=== PATIENT | male | born 1970 | race Caucasian/White ===

== ENCOUNTER 2016-12-14 15:52 | Inpatient (IN) | payer OTHER ==
[~2016-12-14] VITALS: Ht 175.3 cm; Wt 65.3 kg
[~2016-12-14 15:52] MED LIST: ALBUTEROL17 GM IH; AMBIEN10 M1 PO; AMBIEN10 MG PO; BUSPAR10 MG PO; COMBIVENT RESPIM4 GM IH; DEPAKOTE ER (E500 MG PO; DEPAKOTE500 MG PO; FLEXERIL10 MG PO; FLOVENT 11120 INHALA IH; FLOVENT 22120 INHALA IH; Flovent 220 mcg IH; KLONOPIN1 MG PO; MEDROL DOSEPAK4 MG PO; MOTRIN800 MG PO; NAPROSYN500 MG PO; NEURONTIN400 M1 PO; NEURONTIN600 MG PO; SIMVASTATIN20 MG PO; ULTRAM50 MG PO; VENTOLIN HFA18 GM IH; XANAX0.25 MG PO; ZITHROMAX Z-PA250 MG PO; ZYRTEC10 MG PO; Zocor PO; ZyrTEC PO
[2016-12-14 16:38] LABS: HEMATOCRIT 50.1 % (38.0-50.0); MCH 28.6 PG (29.0-34.0); MCHC 32.1 G/DL (30.0-36.0); MCV 89.1 FL (86-99); MEAN PLAT.VOLUME 9.6 uM^3 (9.0-12.4); PLATELET COUNT 362 K/uL (156-360); RBC DIS.WIDTH-CV 13.5 % (11.8-14.6); RBC DIS.WIDTH-SD 44.3 % (39-53); RED BLOOD COUNT 5.62 M/uL (4.00-5.50); WHITE BLOOD COUNT 9.3 K/uL (4.1-10.2)
[2016-12-14 16:47] LABS: CHLORIDE 102 mEq/L (99-109); POTASSIUM 4.2 mEq/L (3.7-5.4); SODIUM 139 mEq/L (136-147)
[2016-12-14 16:49] LABS: GLUCOSE 85 mg/dL (70-99)
[2016-12-14 16:50] LABS: ANION GAP 10 MEQ/L (2-14)
[2016-12-14 16:52] LABS: SERUM ETHYL ALCOHOL < 10 mg/dL
[2016-12-14 16:53] LABS: GFR ESTIMATE (CALCULATED) > 59 mL/min/
[2016-12-14 16:54] LABS: UREA NITROGEN (BUN) 9 mg/dL (9-23)
[2016-12-14 17:03] LABS: AMPHETAMINE NEGATIVE (500 ng/mL); BARBITURATES NEGATIVE (200 ng/mL); BENZODIAZEPINES NEGATIVE (150 ng/mL); COCAINE NEGATIVE (150 ng/mL); INTERNAL CONTROLS VALID? YES; METHADONE NEGATIVE (200 ng/mL); METHAMPHETAMINE NEGATIVE (500 ng/mL); OPIATES (MORPHINE) NEGATIVE (100 ng/mL); OXYCODONE NEGATIVE (100 ng/mL); PHENCYCLIDINE NEGATIVE (25 ng/mL); PROPOXYPHENE NEGATIVE (300 ng/mL); THC CANNABINOIDS NEGATIVE (50 ng/mL); TRICYCLIC ANTIDEPRESSANTS NEGATIVE (300 ng/mL)
[2016-12-14] MEDS ORDERED: VENTOLIN HFA18 GM IH ×2 (19:18→21:09)
[2016-12-14] MEDS ORDERED: CLONAZEPAM1 MG PO (19:19)
[2016-12-14] MEDS ORDERED: DEPAKOTE ER500 MG PO (19:19)
[2016-12-14] MEDS ORDERED: ULTRAM50 MG PO (19:19)
[2016-12-14] MEDS ORDERED: ZOCOR20 MG PO (19:20)
[2016-12-14] MEDS ORDERED: DULERA 100 MCG/13 GM IH (19:20)
[2016-12-14] MEDS ORDERED: DULERA 200 MCG/13 GM IH (21:05)
[2016-12-14 21:16] VITALS: BP 125/78
[2016-12-14 21:20] VITALS: BP 125/75
[2016-12-15 07:48] VITALS: BP 100/50
[2016-12-15 15:43] VITALS: BP 108/68
[2016-12-16 07:53] VITALS: BP 107/64
[2016-12-16 16:01] VITALS: BP 121/58
[2016-12-17 07:45] VITALS: BP 124/78
[2016-12-17] MEDS ORDERED: ZOCOR20 MG PO (11:55)
[2016-12-17] MEDS ORDERED: FLEXERIL10 MG PO (11:55)
[2016-12-17] MEDS ORDERED: KLONOPIN1 MG PO (11:55)
[2016-12-17] MEDS ORDERED: VENTOLIN HFA18 GM IH (11:55)
[2016-12-17] MEDS ORDERED: DEPAKOTE ER500 MG PO (11:58)
[2016-12-17] MEDS ORDERED: DULERA 200 MCG/13 GM IH (11:58)
[2016-12-17] MEDS ORDERED: NEURONTIN600 MG PO (11:58)
[2016-12-17] MEDS ORDERED: ULTRAM50 MG PO (11:58)
== END 2016-12-17 14:06 | disposition home or self-care (01) | DRG 885 ==
LOC: EME 15:52 → 1WEST 18:44 → EDOF 18:44 → 1WEST 21:05 → ENRESERV 21:05 → 1WEST 12-17 14:06
DX: F31.9 Bipolar disorder, unspecified (principal); R45.851 Suicidal ideations; J44.9 Chronic obstructive pulmonary disease, unspecified; F12.10 Cannabis abuse, uncomplicated; F17.200 Nicotine dependence, unspecified, uncomplicated; Z59.0 Homelessness; Z85.6 Personal history of leukemia; Z91.14 Patient's other noncompliance with medication regimen; Z91.5 Personal history of self-harm; Z91.410 Personal history of adult physical and sexual abuse
CPT/HCPCS: 80048; 80164; 85027; 90839; 94640; 94640 76; 97150 GO; 97165 GO; 99202; 99281; 99285; G0480; Q0177

== ENCOUNTER 2016-12-28 18:03 | Emergency (ER) | payer OTHER ==
[~2016-12-28] VITALS: Ht 175.3 cm; Wt 62.7 kg
[~2016-12-28 18:03] MED LIST changes: +CLONAZEPAM1 MG PO; +DEPAKOTE ER500 MG PO; +DULERA 100 MCG/13 GM IH; +DULERA 200 MCG/13 GM IH; +ZOCOR20 MG PO
[2016-12-28 19:46] LABS: HEMATOCRIT 43.7 % (38.0-50.0); MCH 29.2 PG (29.0-34.0); MCV 88.6 FL (86-99); PLATELET COUNT 302 K/uL (156-360); RBC DIS.WIDTH-CV 13.4 % (11.8-14.6); RBC DIS.WIDTH-SD 43.6 % (39-53); RED BLOOD COUNT 4.93 M/uL (4.00-5.50); WHITE BLOOD COUNT 11.1 K/uL (4.1-10.2)
[2016-12-28 19:54] LABS: CHLORIDE 106 mEq/L (99-109); POTASSIUM 3.7 mEq/L (3.7-5.4); SODIUM 140 mEq/L (136-147)
[2016-12-28 19:56] LABS: GLUCOSE 92 mg/dL (70-99)
[2016-12-28 19:57] LABS: ANION GAP 9 MEQ/L (2-14)
[2016-12-28 19:59] LABS: SERUM ETHYL ALCOHOL < 10 mg/dL
[2016-12-28 20:00] LABS: GFR ESTIMATE (CALCULATED) > 59 mL/min/; UREA NITROGEN (BUN) 6 mg/dL (9-23)
[2016-12-28 20:34] LABS: AMPHETAMINE NEGATIVE (500 ng/mL); BARBITURATES NEGATIVE (200 ng/mL); BENZODIAZEPINES NEGATIVE (150 ng/mL); COCAINE NEGATIVE (150 ng/mL); INTERNAL CONTROLS VALID? YES; METHADONE NEGATIVE (200 ng/mL); METHAMPHETAMINE NEGATIVE (500 ng/mL); OPIATES (MORPHINE) NEGATIVE (100 ng/mL); OXYCODONE NEGATIVE (100 ng/mL); PHENCYCLIDINE NEGATIVE (25 ng/mL); PROPOXYPHENE NEGATIVE (300 ng/mL); THC CANNABINOIDS PRESUMPTIVE POSITIVE (50 ng/mL); TRICYCLIC ANTIDEPRESSANTS NEGATIVE (300 ng/mL)
[2016-12-28 20:35] LABS: ADD MEDTOX COMMENT Y
[2016-12-28] MEDS ORDERED: DEPAKOTE500 MG PO ×2 (20:37→21:02)
[2016-12-28 21:05] VITALS: BP 124/75
[2016-12-28] MEDS ORDERED: DEPAKOTE ER500 MG PO (21:05)
== END 2016-12-28 21:08 | disposition home or self-care (01) ==
LOC: EME → EDBD 18:03 → EME 21:08
PROVIDERS: Emergency Medicine
DX: F32.9 Major depressive disorder, single episode, unspecified (principal); F39 Unspecified mood [affective] disorder; Z59.0 Homelessness; T50.996A Underdosing of other drugs, medicaments and biological substances, initial encounter; Z91.128 Patient's intentional underdosing of medication regimen for other reason; F17.200 Nicotine dependence, unspecified, uncomplicated; Z87.442 Personal history of urinary calculi; Z85.6 Personal history of leukemia; Z88.0 Allergy status to penicillin; Z88.1 Allergy status to other antibiotic agents
CPT/HCPCS: 80048; 84999; 85027; 90839; 99281; 99283; G0480

== ENCOUNTER 2017-01-06 13:52 | Emergency (ER) | payer OTHER ==
[~2017-01-06] VITALS: Ht 162.6 cm; Wt 63.6 kg
[2017-01-06] MEDS ORDERED: FLOMAX0.4 MG PO (15:23)
[2017-01-06] MEDS ORDERED: BICALUTAMIDE50 MG PO (15:23)
[2017-01-06] MEDS ORDERED: COLACE100 MG PO (15:23)
[2017-01-06 16:21] LABS: HEMATOCRIT 43.1 % (38.0-50.0); MCH 29.1 PG (29.0-34.0); MCHC 32.7 G/DL (30.0-36.0); MCV 88.9 FL (86-99); MEAN PLAT.VOLUME 9.8 uM^3 (9.0-12.4); PLATELET COUNT 285 K/uL (156-360); RBC DIS.WIDTH-CV 13.4 % (11.8-14.6); RBC DIS.WIDTH-SD 44.3 % (39-53); RED BLOOD COUNT 4.85 M/uL (4.00-5.50); WHITE BLOOD COUNT 11.6 K/uL (4.1-10.2)
[2017-01-06 16:32] LABS: CHLORIDE 106 mEq/L (99-109); POTASSIUM 3.8 mEq/L (3.7-5.4); SODIUM 140 mEq/L (136-147)
[2017-01-06 16:33] LABS: GLUCOSE 105 mg/dL (70-99)
[2017-01-06 16:35] LABS: ANION GAP 8 MEQ/L (2-14)
[2017-01-06 16:37] LABS: GFR ESTIMATE (CALCULATED) > 59 mL/min/
[2017-01-06 16:38] LABS: UREA NITROGEN (BUN) 8 mg/dL (9-23)
[2017-01-06 16:42] LABS: TROP-I INTERPRETATION NEGATIVE; TROPONIN-I < 0.01 ng/mL (0.0-0.30)
[2017-01-06 17:25] VITALS: BP 112/88
== END 2017-01-06 17:26 | disposition home or self-care (01) ==
LOC: EME 13:52
PROVIDERS: Emergency Medicine
DX: R00.0 Tachycardia, unspecified (principal); Z87.442 Personal history of urinary calculi; Z85.6 Personal history of leukemia; F17.200 Nicotine dependence, unspecified, uncomplicated
CPT/HCPCS: 80048; 84484; 85027; 93005; 99281; 99284

== ENCOUNTER 2017-01-24 16:53 | Emergency (ER) | payer OTHER ==
[~2017-01-24] VITALS: Ht 175.3 cm; Wt 64.4 kg
[~2017-01-24 16:53] MED LIST changes: +BICALUTAMIDE50 MG PO; +COLACE100 MG PO; +FLOMAX0.4 MG PO
[2017-01-24] MEDS ORDERED: PREDNISONE20 MG PO (21:19)
[2017-01-24] MEDS ORDERED: LEVAQUIN500 MG PO (21:19)
[2017-01-24 21:45] VITALS: BP 128/73
== END 2017-01-24 21:48 | disposition home or self-care (01) ==
LOC: EME 16:53
DX: J44.0 Chronic obstructive pulmonary disease with (acute) lower respiratory infection (principal); J18.0 Bronchopneumonia, unspecified organism; F17.200 Nicotine dependence, unspecified, uncomplicated; Z71.6 Tobacco abuse counseling; Z88.0 Allergy status to penicillin
CPT/HCPCS: 71020; 99281; 99284; J7512

== ENCOUNTER 2017-04-15 02:12 | Emergency (ER) | payer OTHER ==
[~2017-04-15] VITALS: Ht 175.3 cm; Wt 63.5 kg
[~2017-04-15 02:12] MED LIST changes: +LEVAQUIN500 MG PO; +PREDNISONE20 MG PO
[2017-04-15 02:34] LABS: HEMATOCRIT 42.1 % (38.0-50.0); MCH 29.6 PG (29.0-34.0); MCHC 32.5 G/DL (30.0-36.0); MCV 90.9 FL (86-99); MEAN PLAT.VOLUME 9.9 uM^3 (9.0-12.4); PLATELET COUNT 251 K/uL (156-360); RBC DIS.WIDTH-CV 14.5 % (11.8-14.6); RBC DIS.WIDTH-SD 48.1 % (39-53); RED BLOOD COUNT 4.63 M/uL (4.00-5.50); WHITE BLOOD COUNT 8.8 K/uL (4.1-10.2)
[2017-04-15 02:49] LABS: CHLORIDE 106 mEq/L (99-109); POTASSIUM 4.2 mEq/L (3.7-5.4); SODIUM 136 mEq/L (136-147)
[2017-04-15 02:51] LABS: GLUCOSE 104 mg/dL (70-99)
[2017-04-15 02:53] LABS: ANION GAP 7 MEQ/L (2-14); TOTAL BILIRUBIN 0.3 mg/dL (0.0-1.0)
[2017-04-15 02:55] LABS: ALKALINE PHOSPHATASE 69 IU/L (3-129); GFR ESTIMATE (CALCULATED) > 59 mL/min/; TROP-I INTERPRETATION NEGATIVE; TROPONIN-I < 0.01 ng/mL (0.0-0.30)
[2017-04-15 02:56] LABS: UREA NITROGEN (BUN) 17 mg/dL (9-23)
[2017-04-15 04:31] VITALS: BP 100/64
== END 2017-04-15 04:32 | disposition home or self-care (01) ==
LOC: EME 02:12
PROVIDERS: Physician Assistant
DX: R07.89 Other chest pain (principal); F41.1 Generalized anxiety disorder; F17.200 Nicotine dependence, unspecified, uncomplicated; F31.9 Bipolar disorder, unspecified; Z88.1 Allergy status to other antibiotic agents; Z88.5 Allergy status to narcotic agent; Z88.0 Allergy status to penicillin; Z87.442 Personal history of urinary calculi
CPT/HCPCS: 71010; 80053; 84484; 85027; 93005; 99281; 99284

== ENCOUNTER 2017-05-09 23:56 | Emergency (ER) | payer OTHER ==
[~2017-05-09] VITALS: Ht 175.3 cm; Wt 67.6 kg
[2017-05-10 00:17] LABS: MCH 30.2 PG (29.0-34.0); MCV 91.5 FL (86-99); MEAN PLAT.VOLUME 10.1 uM^3 (9.0-12.4); PLATELET COUNT 266 K/uL (156-360); RBC DIS.WIDTH-CV 14.4 % (11.8-14.6); RBC DIS.WIDTH-SD 48.7 % (39-53); WHITE BLOOD COUNT 9.2 K/uL (4.1-10.2)
[2017-05-10 00:26] LABS: CHLORIDE 107 mEq/L (99-109); SODIUM 136 mEq/L (136-147)
[2017-05-10 00:28] LABS: GLUCOSE 108 mg/dL (70-99)
[2017-05-10 00:30] LABS: ANION GAP 7 MEQ/L (2-14)
[2017-05-10 00:32] LABS: GFR ESTIMATE (CALCULATED) > 59 mL/min/ (58.99-99999)
[2017-05-10 00:33] LABS: UREA NITROGEN (BUN) 17 mg/dL (9-23)
[2017-05-10 00:36] LABS: TROP-I INTERPRETATION NEGATIVE; TROPONIN-I < 0.01 ng/mL (0.0-0.30)
[2017-05-10 03:02] VITALS: BP 105/58
== END 2017-05-10 03:06 | disposition home or self-care (01) ==
LOC: EME → EDBD 23:56 → EME 23:56
DX: I47.1 Supraventricular tachycardia (principal); J06.9 Acute upper respiratory infection, unspecified; J44.1 Chronic obstructive pulmonary disease with (acute) exacerbation; F41.9 Anxiety disorder, unspecified; F31.9 Bipolar disorder, unspecified; Z85.6 Personal history of leukemia; F17.200 Nicotine dependence, unspecified, uncomplicated; Z87.442 Personal history of urinary calculi; Z88.0 Allergy status to penicillin; Z88.1 Allergy status to other antibiotic agents; Z88.5 Allergy status to narcotic agent
CPT/HCPCS: 71020; 80048; 84484; 85027; 93005; 99281; 99285; J7040